=== PATIENT | female | born 2000 | race African-American/Black ===

== ENCOUNTER 2023-01-21 15:49 | Emergency (ER) | payer OTHER ==
[2023-01-21 15:58] VITALS: RESP 16; TEMP 98.1; BMI 23.0
[2023-01-21 17:17] LABS: BASO % 0.5 % (0-2.0); EOS % 0.4 % (0-4.5); HEMATOCRIT 32.4 % (32.4-45.2); HEMOGLOBIN 11.5 GM/dL (10.7-15.3); LYMPH % 30.9 % (8-40); MCH 29.7 pg (25.7-33.7); MCHC 35.4 g/dl (32.0-36.0); MEAN CELL VOLUME 83.8 fl (80-96); MONO % 9.2 % (3.8-10.2); PLATELET COUNT 329 10^3/uL (134-434); RBC 3.86 M/mm3 (3.60-5.2); RDW 15.6 % (11.6-15.6)
[2023-01-21 17:19] LABS: EPI CELLS 10 /uL (0-25.1); HYALINE CASTS 1 /uL (0-3.1); URINE APPEARANCE CLEAR; URINE BACTERIA 260 /uL (0-1359); URINE BILIRUBIN NEGATIVE (NEGATIVE); URINE COLOR YELLOW; URINE GLUCOSE (UA) NEGATIVE (NEGATIVE); URINE KETONE NEGATIVE (NEGATIVE); URINE LEUK ESTERASE NEGATIVE (NEGATIVE); URINE NITRITE NEGATIVE (NEGATIVE); URINE PROTEIN NEGATIVE (NEGATIVE); URINE RBC 35 /uL (0-23.9); URINE UROBILINOGEN 0.2 mg/dL (0.2-1.0); URINE WBC 26 /uL (0-25.8)
[2023-01-21 17:39] LABS: CHLORIDE 108 mmol/L (98-107); POTASSIUM 3.7 mmol/L (3.5-5.1); SODIUM 140 mmol/L (136-145)
[2023-01-21 17:41] LABS: ALBUMIN 4.3 g/dl (3.4-5.0); CALCIUM 9.4 mg/dL (8.5-10.1)
[2023-01-21 17:42] LABS: ANION GAP 8 mmol/L (4-13); BLOOD UREA NITROGEN 11.1 mg/dL (7-18); CO2 24 mmol/L (21-32)
[2023-01-21 17:44] LABS: SGPT/ALT < 6 U/L (13-61)
[2023-01-21 17:45] LABS: SGOT/AST 6 U/L (15-37)
[2023-01-21 17:46] LABS: BILIRUBIN,TOTAL 1.1 mg/dL (0.2-1); TOT PROT 8.2 g/dl (6.4-8.2)
[2023-01-21 17:47] LABS: ALK PHOS 55 U/L (45-117)
[2023-01-21 17:55] LABS: CREATININE 0.8 mg/dL (0.55-1.3); GLUCOSE,RANDOM 88 mg/dL (74-106)
[2023-01-21 20:33] VITALS: BP 123/69; PULSE 96
== END 2023-01-21 20:14 | disposition home or self-care (01) ==
LOC: JER 15:49
DX: R11.2 Nausea with vomiting, unspecified (principal); R51.9 Headache, unspecified
CPT/HCPCS: 36415; 70450-TC; 80053; 81003; 84703; 85025; 87086; 99284-25